=== PATIENT | male | born 1990 | race Caucasian/White ===

== ENCOUNTER → 2022-08-19 | Outpatient (CLI) | payer BC ==
--- NOTE | 2022-08-19 14:57 | US ---
EXAMINATION TYPE: US venous doppler duplex LE LT DATE OF EXAM: 08/19/2022 2:28 PM COMPARISON: NONE CLINICAL INDICATION: Male, 32 years old with history of I80.9; hx left ankle ligament surgery x 1 mon th ago. Calf and ankle discomfort x 1 week ago. No redness or swelling. SIDE PERFORMED: Left TECHNIQUE: The lower extremity deep venous system is examined utilizing real time linear array sonog lien with graded compression, doppler sonography and color-flow sonography. VESSELS IMAGED: Common Femoral Vein Deep Femoral Vein Greater Saphenous Vein * Femoral Vein Popliteal Vein Small Saphenous Vein * Proximal Calf Veins (* superficial vessels) Left Leg: POSITIVE for DVT in distal popliteal to calf veins, nonoccluding. IMPRESSION: There is evidence of DVT as noted above.
== END | disposition home or self-care (01) ==
LOC: RADUSWWP 13:52
PROVIDERS: ATTEND Podiatrist
DX: I82.431 Acute embolism and thrombosis of right popliteal vein (principal)

== ENCOUNTER 2022-10-02 14:22 | Observation (INO) | payer BC, OTHER ==
--- NOTE | 2022-10-02 16:37 | XR ---
EXAMINATION TYPE: XR chest 2V DATE OF EXAM: 10/02/2022 COMPARISON: None INDICATION: Chest pain history of blood clot removal from leg TECHNIQUE: Frontal and lateral views of the chest are obtained. FINDINGS: The heart size is normal. The pulmonary vasculature is normal. Mild platelike atelectasis is above the right diaphragm. There is elevation of the right diaphragm.. IMPRESSION: 1. Mild platelike atelectasis right lung base
[2022-10-02 16:52] LABS: ALT 75 U/L (4-49); African American GFR (CKD) >90 (>60 ml/min/1.73 sqM); Albumin 4.5 g/dL (3.5-5.0); Anion Gap 14 mmol/L; Blood Urea Nitrogen 15 mg/dL (9-20); Calcium 9.7 mg/dL (8.4-10.2); Carbon Dioxide 18 mmol/L (22-30); Chloride 108 mmol/L (98-107); Glucose 103 mg/dL (74-99); Non-African American GFR(CKD) >90 (>60 ml/min/1.73 sqM); Sodium 140 mmol/L (137-145); Total Protein 7.8 g/dL (6.3-8.2)
[2022-10-02 16:53] LABS: INR 1.5 (<1.2); Partial Thromboplastin Time 27.9 sec (22.0-30.0); Prothrombin Time 14.7 sec (9.0-12.0)
[2022-10-02 17:02] LABS: AST 51 U/L (17-59); Alkaline Phosphatase 86 U/L (38-126); Magnesium 2.1 mg/dL (1.6-2.3); Potassium 4.1 mmol/L (3.5-5.1)
--- NOTE | 2022-10-02 17:26 | ED ---
Chest Pain HPI - General Chief Complaint: Chest Pain Stated Complaint: chest pain Time Seen by Provider: 10/02/22 15:49 Source: patient Mode of arrival: ambulatory Limitations: no limitations - History of Present Illness Initial Comments: Oh is a 32-year-old male who presents to the emergency department today for evaluation of right-sided chest pain. Patient reports he woke up this morning has pain in the right side of his chest, pain is worse with deep breaths. Patient feels like he can't take a deep breath due to the pain. Patient does have a history of a provoked DVT in his left leg after ankle surgery. Patient was prescribed Eliquis but admits that he's been minimally compliant with it. Patient states that his medical insurance changed and he didn't follow-up with any providers for refill of his L Sneha due to having not met his new deductible. Patient states he takes his Eliquis occasionally when he remembers but typically only once every 3 or so days. He did take one today. Patient states when he told his girlfriend about the pain in his chest she was worried he could have a blood clot in his lungs encouraged him to come to the hospital. After further questioning patient does admit to being a daily drinker. Patient states that he has a few drinks after work most days and on weekends usually drinks throughout the day because he is either playing golf or spending time poolside. Patient states he only drinks beer and wine no the fan of liquor. - Related Data Home Medications Medication Instructions Recorded Confirmed Apixaban [Eliquis] 5 mg PO BID 10/02/22 10/02/22 Allergies Allergy/AdvReac Type Severity Reaction Status Date / Time No Known Allergies Allergy Verified 10/02/22 16:59 Review of Systems ROS Statement: Those systems with pertinent positive or pertinent negative responses have been documented in the HPI. ROS Other: All systems not noted in ROS Statement are negative. 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 There are no acute ST elevations or depressions there is no evidence of acute ischemia or infarction. Past Medical History Past Medical History: No Reported History History of Any Multi-Drug Resistant Organisms: None Reported Past Surgical History: Orthopedic Surgery Additional Past Surgical History / Comment(s): blood clot removeal from left leg after having left ankle surgery Past Psychological History: No Psychological Hx Reported Smoking Status: Vaper Past Alcohol Use History: Occasional Past Drug Use History: None Reported General Exam - General Exam Comments Initial Comments: Physical Exam GENERAL: Patient is well-developed and well-nourished. Patient is nontoxic and well- hydrated and is in no distress. HENT: Normocephalic, Atraumatic. EYES: PERRL, EOMI PULMONARY: Unlabored respirations. No audible rales rhonchi or wheezing was noted. CARDIOVASCULAR: Tachycardic, regular, no murmurs ABDOMEN: Soft and nontender with normal bowel sounds. SKIN: Skin is clear with no lesions or rashes and otherwise unremarkable. : Deferred NEUROLOGIC: Patient is alert and oriented x3. Moving all extremities spontaneously MUSCULOSKELETAL: Normal extremities with adequate strength and full range of motion. No lower extremity swelling or edema. No calf tenderness. PSYCHIATRIC: Normal psychiatric evaluation. Limitations: no limitations Course Vital Signs 10/02/22 14:25 Temperature 98.5 F Pulse Rate 126 H Respiratory 18 Rate Blood Pressure 132/92 O2 Sat by Pulse 95 Oximetry Chest Pain MDM - MDM Patient was seen and evaluated, history is obtained from the patient. Considering the history of previous DVT noncompliance with L Sneha there is concern for possible PE. Labs were obtained chest x-ray and computed tomography scan were obtained. No pulmonary embolism was identified. No source of his tachycardia or or injection shortness of breath or chest pain were identified. Patient did receive Ativan after having some anxiety laying down and CT scanner. He also received Toradol and reported significant improvement in the right- sided chest discomfort. However patient remained persistently significantly tachycardic. Upon reevaluation even while asleep patient's tachycardia remained at 108-110. Upon waking patient sat up and began speaking heart rate was again 137 244. Vision care was discussed with on-call business risk analyst Dr. Culp who recommends admission for cardiac monitoring and further workup. The patient was agreeable to this. Was pt. sent in by a medical professional or institution (, PA, GROMMET WORKER, urgent care, hospital, or custodial...) When possible be specific @ -No Did you speak to anyone other than the patient for history (EMS, parent, family, police, friend...)? What history was obtained from this source @ -No Did you review nursing and triage notes (agree or disagree)? Why? @ -I reviewed and agree with nursing and triage notes Were old charts reviewed (outside hosp., previous admission, EMS record, old EKG, old radiological studies, urgent care reports/EKG's, custodial records)? Report findings @ -No old charts were reviewed Differential Diagnosis (chest pain, altered mental status, abdominal pain women, abdominal pain men, vaginal bleeding, weakness, fever, dyspnea, syncope, headache, dizziness, GI bleed, back pain, seizure, CVA, palpatations, mental health, musculoskeletal)? @ -Differential Chest Pain: Stable Angina, Unstable Angina, STEMI, NSTEMI Aortic Dissection, Pneumothorax, Musculoskeletal, Esophageal Spasm GERD, Cholecystitis, Pancreatitis, Zoster, this is not meant to be an all-inclusive list. EKG interpreted by me (3pts min.). @ -As above X-rays interpreted by me (1pt min.). @ -No pneumothorax or focal consolidation identified CT interpreted by me (1pt min.). @ -No saddle pulmonary embolism identified U/S interpreted by me (1pt. min.). @ -None done What testing was considered but not performed or refused? (CT, X-rays, U/S, labs)? Why? @ -Echocardiogram, to be completed during admission What meds were considered but not given or refused? Why? @ -None Did you discuss the management of the patient with other professionals (professionals i.e. , PA, GROMMET WORKER, lab, RT, psych nurse, social research assistant, fence builder, teacher, enforcement safety officer, case manager specialist)? Give summary @ -Patient care discussed with business risk analyst Dr. Culp Was smoking cessation discussed for >3mins.? @ -Yes - patient currently vapes Was critical care preformed (if so, how long)? @ -No Were there social determinants of health that impacted care today? How? (Homelessness, low income, unemployed, alcoholism, drug addiction, transportation, low edu. Level, literacy, decrease access to med. care, custodial, rehab)? @ -Alcoholism Was there de-escalation of care discussed even if they declined (Discuss DNR or withdrawal of care, Hospice)? DNR status @ -No What co-morbidities impacted this encounter? (DM, HTN, Smoking, COPD, CAD, Cancer, CVA, ARF, Chemo, Hep., AIDS, mental health diagnosis, sleep apnea, morbid obesity)? @ -None Was patient admitted / discharged? Hospital course, mention meds given and rout e, prescriptions, significant lab abnormalities, going to OR and other pertinent info. @ -Placed in observation Undiagnosed new problem with uncertain prognosis? @ -No Drug Therapy requiring intensive monitoring for toxicity (Heparin, Nitro, Insulin, Cardizem)? @ -No Were any procedures done? @ -No Diagnosis/symptom? @ -Chest pain, tachycardia Acute, or Chronic, or Acute on Chronic? @ -Acute Uncomplicated (without systemic symptoms) or Complicated (systemic symptoms)? @ -Complicated Side effects of treatment? @ -No Exacerbation, Progression, or Severe Exacerbation? @ -No Poses a threat to life or bodily function? How? (Chest pain, [place], [place], pneumonia, PE, COPD, DKA, ARF, appy, cholecystitis, CVA, Diverticulitis, Homicidal, Suicidal, threat to staff... and all critical care pts) @ -Yes Disposition Clinical Impression: Pleuritic chest pain, Tachycardia Disposition: ADMITTED IP TO THIS HOSP Condition: Stable Instructions (If sedation given, give patient instructions): Pleurisy (DC) Is patient prescribed a controlled substance at d/c from ED?: No Referrals: None,Stated [Primary Care Provider] - 1-2 days
[2022-10-02 17:54] LABS: Basophils % (A) 0 %; Eosinophils # (A) 0.1 k/uL (0-0.7); Eosinophils % (A) 1 %; HCT 47.8 % (39.0-53.0); HGB 16.9 gm/dL (13.0-17.5); Lymphocytes % (A) 14 %; MCH 32.2 pg (25.0-35.0); MCHC 35.4 g/dL (31.0-37.0); MCV 91.1 fL (80.0-100.0); Mean Platelet Volume 8.3; Monocytes # (A) 0.3 k/uL (0-1.0); Monocytes % (A) 5 %; Neutrophils # (A) 5.5 k/uL (1.3-7.7); Neutrophils % (A) 78 %; Platelet Count 209 k/uL (150-450); RBC 5.25 m/uL (4.30-5.90); RDW 12.3 % (11.5-15.5)
[2022-10-02] MEDS ORDERED: LORazepam 2 MG/ML INJ IV STA (17:58)
--- NOTE | 2022-10-02 19:13 | CT ---
CT CHEST FOR PULMONARY EMBOLISM. EXAMINATION TYPE: CT chest angio for PE DATE OF EXAM: 10/02/2022 INDICATION: chest pain CT DLP: 539.9 mGycm, Automated exposure control for dose reduction was used. CONTRAST: Patient injected with 100 mL of Isovue 370. COMPARISON: None TECHNIQUE: CT of the chest is performed on a spiral scan at 2 mm thick sections. Study is performed with intravenous contrast timed for evaluation for pulmonary embolism. This will limit additional po rtions of the evaluation. 3-D MIP images reconstructed by the technologist are reviewed on the compu ter in the coronal and sagittal planes. FINDINGS: No persistent filling defects are evident to suggest an acute pulmonary embolism. No mediastinal or hilar adenopathy enlarged by CT criteria is evident. The ascending aorta diameter at the level of the main pulmonary artery is 3.2 cm. The main pulmonary artery diameter at the bifur cation is 2.5 cm. Lung windows are clear. Limited CT section through the upper abdomen. No is made of a splenule adjacent to the spleen. There is some moderate fatty infiltration of the liver. IMPRESSIONS: 1. No acute pulmonary embolism. 2. No acute pulmonary process. 3. Moderate fatty infiltration of the liver.
[2022-10-02] MEDS ORDERED: SODIUM CHLORIDE 0.9% 1,000 ML IV ONE (19:35)
[2022-10-02] MEDS ORDERED: KETOROLAC 15 MG/ML 1 ML VIAL IVP STA (19:35)
[2022-10-02] MEDS ORDERED: ASPIRIN 81 MG PO STA (22:04)
[2022-10-02] MEDS ORDERED: MELATONIN 3 MG TABLET PO PRN (22:41)
[2022-10-02] MEDS ORDERED: LORazepam 1 MG TAB PO PRN (22:41)
[2022-10-02] MEDS ORDERED: HEPARIN SODIUM 1,000 UN/ML (10ML VL) IV PRN (22:58)
[2022-10-02] MEDS ORDERED: HEPARIN SODIUM 1,000 UN/ML (10ML VL) IV ONE (22:58)
[2022-10-02] MEDS ORDERED: HEPARIN SOD,PORK IN 0.45% NACL 25,000 UNIT in 0.45% NACL 1 250ML.BAG IV SCH (23:00)
[2022-10-03 00:31] LABS: Basophils % (A) 0 %; Eosinophils # (A) 0.1 k/uL (0-0.7); Eosinophils % (A) 1 %; HCT 44.4 % (39.0-53.0); HGB 15.3 gm/dL (13.0-17.5); Lymphocytes # (A) 0.9 k/uL (1.0-4.8); Lymphocytes % (A) 16 %; MCHC 34.5 g/dL (31.0-37.0); MCV 92.8 fL (80.0-100.0); Mean Platelet Volume 8.4; Monocytes # (A) 0.3 k/uL (0-1.0); Monocytes % (A) 5 %; Neutrophils # (A) 4.6 k/uL (1.3-7.7); Neutrophils % (A) 76 %; Platelet Count 171 k/uL (150-450); RBC 4.78 m/uL (4.30-5.90); RDW 12.5 % (11.5-15.5)
[2022-10-03] MEDS ORDERED: ZOLPIDEM 5 MG TAB PO PRN (00:32)
[2022-10-03] MEDS ORDERED: ALPRAZolam 0.25 MG TAB PO PRN (00:32)
--- NOTE | 2022-10-03 00:43 | P.HPIM ---
History of Present Illness H&P Date: 10/02/22 Chief Complaint: chest pain 32 year old male with recent ankle injury , followed by acute left LE DVT on eliquis he is coming in today with right sided pleuritic chest pain of 1 day duration. he describes anxiety resulting in fast heart rate, and palpitations. he denies a ny drugs or excessive caffeine intake, but does admit to anxiety and increase stress due to work. denies any cardiac history , but since his surgery on his left ankle back in July of this year , he has been told that he has fast heart rate. 1 month later, persistent swelling of his left ankle , and was diagnosed with acute DVT and started on eliquis , he admits to not being compliant with his meds denies any URI symptoms , fever chills, dizziness, nausea or vom iting, denies any abd pain or bleeding , denies any hemoptysis denies drugs , tobacco smoking, admits to vaping, and regular 5 days a week of 4 beers daily Review of Systems Pertinent positives as noted in HPI. All other systems were reviewed and are negative Past Medical History Past Medical History: Deep Vein Thrombosis (DVT) History of Any Multi-Drug Resistant Organisms: None Reported Past Surgical History: Orthopedic Surgery Additional Past Surgical History / Comment(s): blood clot removeal from left leg after having left ankle surgery Past Psychological History: No Psychological Hx Reported Smoking Status: Vaper Past Alcohol Use History: Occasional Past Drug Use History: None Reported Medications and Allergies Home Medications Medication Instructions Recorded Confirmed Type Apixaban [Eliquis] 5 mg PO BID 10/02/22 10/02/22 History Allergies Allergy/AdvReac Type Severity Reaction Status Date / Time No Known Allergies Allergy Verified 10/02/22 16:59 Physical Exam Vitals: Vital Signs Temp Pulse Pulse Resp BP Pulse Ox 10/02/22 22:35 113 H 16 135/74 95 10/02/22 20:00 130 H 10/02/22 14:25 98.5 F 126 H 18 132/92 95 Intake and Output 10/02/22 10/02/22 10/02/22 06:59 14:59 22:59 Other: Weight 108.862 kg v Constitutional: No acute distress, conversant, pleasant Eyes: Anicteric sclerae, moist conjunctiva, Pupils equal round reactive to light ENMT: NC/AT Oropharynx clear, no erythema, or exudates Neck: Supple, no masses, or JVD No carotid bruits No thyromegaly Lungs: Clear to auscultation Clear to percussion Normal respiratory effort, no accessory muscle use Cardiovascular: Heart tachycardia No murmurs, gallops, or rubs No peripheral edema Abdominal: Soft Nontender, no guarding, rebound or rigidity Abdomen moving with respiration Normoactive bowel sounds No hepatomegaly, No splenomegaly No palpable mass No abdominal wall hernia noted Skin: Normal temperature, tone, texture, turgor No induration No subcutaneous nodules No rash, lesions No ulcers Extremities: No digital cyanosis No clubbing Pedal pulses intact and symmetrical Radial pulses intact and symmetrical No calf tenderness Psychiatric: Alert and oriented to person, place and time Appropriate affect fair judgement Neuro Muscles Strength 5/5 in all 4 extremities Sensation to light touch grossly present throughout Cranial nerves II-XII grossly intact Lymphatics: no palpable cervical or supraclavicular lymph nodes Results CBC & Chem 7: 10/02/22 23:52 10/02/22 16:11 Labs: Abnormal Lab Results - Last 24 Hours (Table) 10/02/22 10/02/22 Range/Units 16:11 16:11 PT 14.7 H (9.0-12.0) sec INR 1.5 H (<1.2) Chloride 108 H (98-107) mmol/L Carbon Dioxide 18 L (22-30) mmol/L Glucose 103 H (74-99) mg/dL ALT 75 H (4-49) U/L Assessment and Plan Assessment: 32 year old male with recent diagnosis of acute provoked DVT 1 month ago , not compliant with eliquis , coming in for tachyardia and right sided peluritic chest pain , I discussed the case with ED doc , and I accepted the admission for cardiac workup with anticipated length of stay < 2 midnights sinus tachycardia subacute DVTof left LE , provoked with recent surgery of the left ankle on jul 22 2022, non compliant with eliquis plan check echocardiogram check TSH , reflex to free t4 left lower extremity doppler , shows subacute DVT resume eliquis IVF hydration with normal saline asymptomatic PRN xanax ambien for insomnia 5mg cardiology consult patient wears smart watch, showing a HR in the range of 80-90. with spikes into the 110-130 electrolytes unremarkable K 4.1, Mg 2.1 trops negative , Pro BNP <20 CTA no acute PE d dimer negative daily ETOH monitor for alcohol withdrawal counseled to quit drinking thiamine daily po renal function , unremarkable BUN 15 , cr 0.89 full code DVT PPX on eliquis
[2022-10-03 00:45] LABS: Partial Thromboplastin Time 25.9 sec (22.0-30.0); Prothrombin Time 10.2 sec (9.0-12.0)
[2022-10-03] MEDS ORDERED: LORazepam 0.5 MG TAB PO PRN (00:45)
[2022-10-03] MEDS ORDERED: LORazepam 1 MG TAB PO PRN ×3 (00:45)
[2022-10-03] MEDS: APIXABAN 5 MG TAB PO SCH ×2 (01:11→08:53)
[2022-10-03 04:59] LABS: Basophils % (A) 0 %; Eosinophils % (A) 1 %; HCT 42.6 % (39.0-53.0); HGB 14.7 gm/dL (13.0-17.5); Lymphocytes # (A) 1.1 k/uL (1.0-4.8); Lymphocytes % (A) 24 %; MCH 31.8 pg (25.0-35.0); MCHC 34.4 g/dL (31.0-37.0); MCV 92.5 fL (80.0-100.0); Mean Platelet Volume 8.6; Monocytes # (A) 0.3 k/uL (0-1.0); Monocytes % (A) 6 %; Neutrophils # (A) 3.1 k/uL (1.3-7.7); Neutrophils % (A) 67 %; Platelet Count 164 k/uL (150-450); RBC 4.61 m/uL (4.30-5.90); RDW 12.4 % (11.5-15.5); WBC 4.6 k/uL (3.8-10.6)
[2022-10-03 07:21] VITALS: RESP 16
[2022-10-03 08:59] LABS: Chol/HDL Ratio 5.33 Ratio; LDL Cholesterol,Calculated 127.8 mg/dL (0.0-131.0); VLDL Calculation 18.38 mg/dL (5.00-40.00)
[2022-10-03] MEDS ORDERED: ASPIRIN 325 MG TAB PO SCH (09:00)
[2022-10-03] MEDS ORDERED: DOBUTamine DRIP for NUC MED 500 MG in DEXTROSE/WATER 1 250ML.BAG IV PRN (09:00)
--- NOTE | 2022-10-03 09:50 | P.CRDCN ---
History of Present Illness Consult date: 10/03/22 Requesting physician: Evelin Fine Reason for Consult (text): chest pain Chief complaint: chest pain History of present illness: This is a pleasant 32-year-old gentleman who does not follow regularly with the physician. He has a history of ankle surgery in July and subsequently developed a left leg DVT and was started on Eliquis. He admits to not taking this regularly. He has a history of vaping and admits to drinking 3-4 beers at least 5 days a week. He presented with complaints of chest discomfort. Yesterday he developed sharp right sided chest pain with pronation. CTA of the chest was negative for PE. Troponins have been negative 3. EKG shows short ND interval and delta waves suggestive of WPW. He admits to occasional palpitations typically with stress or activity. Denies any dizziness, lightheadedness, shortness of breath, edema or PND. This morning upon examination he is resting comfortably in bed. He denies further complaints of chest discomfort. Vital signs have been stable. He remains tachycardic. Past Medical History Past Medical History: Deep Vein Thrombosis (DVT) History of Any Multi-Drug Resistant Organisms: None Reported Past Surgical History: Orthopedic Surgery Additional Past Surgical History / Comment(s): blood clot removeal from left leg after having left ankle surgery Past Psychological History: No Psychological Hx Reported Smoking Status: Vaper Past Alcohol Use History: Occasional Past Drug Use History: None Reported Medications and Allergies Home Medications Medication Instructions Recorded Confirmed Type Apixaban [Eliquis] 5 mg PO BID 10/02/22 10/02/22 History Allergies Allergy/AdvReac Type Severity Reaction Status Date / Time No Known Allergies Allergy Verified 10/02/22 16:59 Physical Exam Vitals: Vital Signs Temp Pulse Pulse Resp BP BP Pulse Ox 10/03/22 08:35 95 10/03/22 07:00 98.4 F 108 H 16 101/69 95 10/03/22 01:45 99.0 F 125 H 17 133/82 95 10/03/22 00:00 112 H 16 129/97 98 10/02/22 22:35 113 H 16 135/74 95 10/02/22 20:00 130 H 10/02/22 14:25 98.5 F 126 H 18 132/92 95 Intake and Output 07/10/03/22 10/03/22 22:59 06:59 14:59 Other: # Voids 2 Weight 108.862 kg PHYSICAL EXAMINATION: This is a 32-year-old male in no apparent distress at the time of my examination. HEENT: Head is atraumatic, normocephalic. Pupils are equal, round. Sclerae anicteric. Conjunctivae are clear. Mucous membranes of the mouth are moist. Neck is supple. There is no elevated jugular venous pressure. No carotid bruit is heard. CHEST EXAMINATION: Clear to auscultation bilaterally. No wheezes rales or rhonchi. Respirations even and nonlabored. HEART EXAMINATION: Heart regular, positive S1 and S2. No S3. No S4. No clicks, rubs or murmurs. ABDOMEN: Soft, nontender. Bowel sounds are heard. No organomegaly noted. EXTREMITIES: 2+ peripheral pulses with no evidence of peripheral edema and no calf tenderness noted. NEUROLOGIC EXAMINATION: Patient is awake, alert and oriented x3. Results 10/03/22 04:30 10/02/22 16:11 Cardiac Enzymes 10/02/22 10/02/22 10/02/22 Range/Units 16:11 16:11 21:21 AST 51 (17-59) U/L Troponin I <0.012 <0.012 (0.000-0.034) ng/mL 10/02/22 Range/Units 23:52 AST (17-59) U/L Troponin I <0.012 (0.000-0.034) ng/mL Coagulation 10/02/22 10/02/22 10/03/22 Range/Units 16:11 23:52 04:30 PT 14.7 H 10.2 (9.0-12.0) sec APTT 27.9 25.9 27.2 (22.0-30.0) sec Lipids 10/03/22 Range/Units 04:30 Triglycerides 91.90 (0.00-149.00) mg/dL Cholesterol 180.00 (0.00-200.00) mg/dL HDL Cholesterol 33.80 L (40.00-60.00) mg/dL Cholesterol/HDL Ratio 5.33 Ratio CBC 10/02/22 10/02/22 10/03/22 Range/Units 17:33 23:52 04:30 WBC 7.0 6.0 4.6 (3.8-10.6) k/uL RBC 5.25 4.78 4.61 (4.30-5.90) m/uL Hgb 16.9 15.3 14.7 (13.0-17.5) gm/dL Hct 47.8 44.4 42.6 (39.0-53.0) % Plt Count 209 171 164 (150-450) k/uL Comprehensive Metabolic Panel 10/02/22 Range/Units 16:11 Sodium 140 (137-145) mmol/L Potassium 4.1 (3.5-5.1) mmol/L Chloride 108 H (98-107) mmol/L Carbon Dioxide 18 L (22-30) mmol/L BUN 15 (9-20) mg/dL Creatinine 0.89 (0.66-1.25) mg/dL Glucose 103 H (74-99) mg/dL Calcium 9.7 (8.4-10.2) mg/dL AST 51 (17-59) U/L ALT 75 H (4-49) U/L Alkaline Phosphatase 86 (38-126) U/L Total Protein 7.8 (6.3-8.2) g/dL Albumin 4.5 (3.5-5.0) g/dL Current Medications Generic Name Dose Route Start Last Admin Trade Name Freq PRN Reason Stop Dose Admin Alprazolam 0.25 mg 10/03/22 00:32 10/03/22 04:38 Alprazolam 0.25 Mg Tab PO 0.25 mg TID PRN Administration Anxiety Apixaban 5 mg 10/03/22 00:45 10/03/22 08:53 Apixaban 5 Mg Tab PO 5 mg BID JUN Administration Protocol Lorazepam 1 mg 10/02/22 22:41 10/03/22 01:11 Lorazepam 1 Mg Tab PO 1 mg ONCE PRN Administration Agitation or Acute Anxiety Lorazepam 0.5 mg 10/03/22 00:45 Lorazepam 0.5 Mg Tab PO Q4HR PRN Ciwa 4 To 5 Lorazepam 1 mg 10/03/22 00:45 Lorazepam 1 Mg Tab PO Q4HR PRN Ciwa 6 To 7 Lorazepam 2 mg 10/03/22 00:45 Lorazepam 1 Mg Tab PO Q2HR PRN Ciwa 10 or greater Lorazepam 2 mg 10/03/22 00:45 Lorazepam 1 Mg Tab PO Q3HR PRN Ciwa 8 To 9 Melatonin 6 mg 10/02/22 22:41 Melatonin 3 Mg Tablet PO HS PRN Insomnia Thiamine HCl 100 mg 10/04/22 09:00 Thiamine 100 Mg Tab PO DAILY JUN Zolpidem Tartrate 5 mg 10/03/22 00:32 Zolpidem 5 Mg Tab PO HS PRN Insomnia Intake and Output 10/02/22 10/03/22 10/03/22 22:59 06:59 14:59 Other: # Voids 2 Weight 108.862 kg 10/03/22 04:30 10/02/22 16:11 Assessment and Plan Assessment: #1 right sided chest discomfort, acute coronary event has been ruled out, troponins negative 3 #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 Discussed importance of compliance with an ticoagulation. Discussed importance of abstaining from alcohol especially while on anticoagulation. We will obtain a stress echocardiogram. Further recommendations depending on diagnostic findings. QUAL RESEARCH MANAGER note has been reviewed, I agree with a documented findings and plan of care. Patient was seen and examined.
--- NOTE | 2022-10-03 11:42 | CA ---
Transthoracic Echo Report Name: Frandy Wood Age: 32 Gender: M : 1990 Exam Date: 10/03/2022 07:59 Exam Location: [facility] Ht (in): 72 Wt (lb): 240 Ordering Physician: Petra Chandra DO Attending/Referring Phys: [id number], Prateek Press Tender [employer] Harika Orozco, [facility] Procedure CPT: Indications: tachycardia Cardiac Hx: Technical Quality: Good Contrast 1: Total Dose (mL): Contrast 2: Total Dose (mL): MEASUREMENTS (Male / Female) Normal Values 2D ECHO LV Diastolic Diameter PLAX 4.5 cm 4.2 - 5.9 / 3.9 - 5.3 cm LV Systolic Diameter PLAX 2.8 cm IVS Diastolic Thickness 1.1 cm 0.6 - 1.0 / 0.6 - 0.9 cm LVPW Diastolic Thickness 1.0 cm 0.6 - 1.0 / 0.6 - 0.9 cm LV Relative Wall Thickness 0.5 RV Internal Dim ED PLAX 2.8 cm LA Systolic Diameter LX 3.9 cm 3.0 - 4.0 / 2.7 - 3.8 cm LA Volume 36.6 cm??? 18 - 58 / 22 - 52 cm??? M-MODE Aortic Root Diameter MM 3.6 cm MV E Point Septal Separation 0.6 cm AV Cusp Separation MM 2.4 cm DOPPLER AV Peak Velocity 111.1 cm/s AV Peak Gradient 4.9 mmHg MV Area PHT 4.2 cm??? Mitral E Point Velocity 80.3 cm/s Mitral A Point Velocity 69.6 cm/s Mitral E to A Ratio 1.2 MV Deceleration Time 179.1 ms MV E' Velocity 7.4 cm/s Mitral E to MV E' Ratio 10.8 FINDINGS Left Ventricle Left ventricular ejection fraction is estimated at 55-60 %. Left ventricular cavity size normal. Left ventricular wall thickness normal. Normal left ventricular wall motion. Right Ventricle Normal right ventricular size and function. Unable to estimate the right ventricular systolic pressure. Right Atrium Normal right atrial size. Left Atrium Normal left atrial size. Mitral Valve Structurally normal mitral valve. No mitral stenosis, regurgitation or prolapse. Aortic Valve Trileaflet aortic valve. No aortic valve stenosis or regurgitation. Tricuspid Valve Structurally normal tricuspid valve. No tricuspid stenosis, regurgitation or prolapse. Pulmonic Valve Structurally normal pulmonic valve. No pulmonic regurgitation. Pericardium Normal pericardium. No pericardial effusion. Aorta Normal size aortic root and proximal ascending aorta. CONCLUSIONS 1. Normal left ventricular size and systolic function 2. No significant valvular abnormalities Previewed by: Dr. Ria Lucio MD (Electronically Signed) Final Date: 03 October 2022 11:41
[2022-10-03] MEDS ORDERED: ACETAMINOPHEN TAB 325 MG TAB PO PRN (12:34)
--- NOTE | 2022-10-03 13:19 | CA ---
Stress Echo Report Frandy Wood Age: 32 Gender: M : 1990 Exam Date: 10/03/2022 12:00 Exam Location: [facility] Ht (in): 72 Wt (lb): 240 Ordering Physician: Marva Jiménez Referring Physician: [id number] Burgos Recorder Of Deeds: Yee Valdez RDCS Technologist Procedure CPT: Indication: Chest Pain ICD-9 Codes: Rhythm: Patient History: Atypical angina, Dyspnea/SOB, Smoker Cardiac Medications: Medications in past 24 hours: Contrast: Lumason Stress Results Protocol: Nacho Total dose(mL): 5 Exercise Duration (min:sec): 09:[address] Depression (mm): 0 Angina Score: 0 Blas Score: 9 METS: 10.5 Resting HR: 107 Resting BP: 131 / 90 Peak HR: 178 Peak BP: 174 / 91 Max Predicted HR: 190 94 % Max Predicted HR Target HR: 162 Double Product: 58993 Stress Summary: The patient's target heart rate was achieved BP Response: Normal Reason for Termination: MAX EXERTION/TARGET HR Cardiac Symptoms: FATIGUE ECG Analysis Resting ECG: Normal sinus rhythm, Resting ST/T wave changes Stress ECG: No abnormal ST/T wave changes with exercise Arrhythmia: None Echo Analysis Resting Echo: Normal resting echocardiogram. Peak Echo Analysis: Normal wall motion and thickening with normal augmentation MEASUREMENTS (Male/Female) Normal Values CONCLUSIONS Patient falls into low-risk group (DTS >= +5). This associates the patient with an annual CV mortality <= 0.5%. 1. Good exercise tolerance with nondiagnostic electrocardiographic response to exercise secondary to baseline EKG abnormality 2. Normal stress echocardiogram with no evidence of stress induced ischemia. Dr. Ria Lucio MD (Electronically Signed) Final Date: 03 October 2022 13:18
[2022-10-03 14:26] VITALS: BP 130/88; PULSE 120; TEMP 99
--- NOTE | 2022-10-03 16:22 | P.DS ---
Providers Date of admission: 10/02/22 22:04 Expected date of discharge: 10/03/22 Attending physician: Evelin Fine MD Consults: 10/02/22 22:04 Consult Physician Urgent Consulting Provider: Trung Culp Consult Reason/Comments: tachycardia Do you want consulting provider notified?: Already Contacted Primary care physician: Stated None Hospital Course: Discharge Diagnosis: Chest pain, acute coronary event ruled out. Chest pain due to pleurisy secondary to Vaping associated lung injury. Recommend cessation of use. Sinus tachycardia. Recommend cessation of alcohol use. History of recently diagnosed DVT, recommend continuation of anticoagulation with Eliquis and reinforced importance of taking medications as prescribed. Atelectasis right lung base, likely secondary to vaping. Recommend cessation of use. At risk alcohol use/abuse with reports of daily EtOH use, recommend cessation of use. Elevated liver enzyme, likely secondary to daily alcohol use/abuse. Hospital Course: Patient is a 32-year-old male with a past medical history of recently diagnosed DVT status post orthopedic procedure currently on anticoagulation with Eliquis and admits to medication noncompliance, daily alcohol use, and daily nicotine use via Vaping. He presented to the emergency department on 10/02/22 with chief complaint of chest pain. He underwent full evaluation in the emergency department. Labs completed and reviewed. CBC unremarkable with WBC count of 7.0, hemoglobin 16.9, and platelet count of 209. Coagulation profile revealing elevated PT of 14.7 and elevated INR of 1.5. D-dimer is negative at less than 0.17. BMP unremarkable with the exception of slightly elevated ALT of 75. Troponin negative at less than 0.012. ProBNP less than 20. EKG completed showing sinus tachycardia at 102 bpm with T-wave inversion in inferior and septal leads 2, 3, aVF, V1, and V2 upon personal review and interpretation. Chest x-ray completed negative for acute cardiopulmonary process reporting platelike atelectasis right lung base. CTA chest negative for acute cardiopulmonary process ruling out pulmonary emboli and revealing moderate fatty infiltration of the liver. Patient admitted under our services with consultation to cardiology. Troponins trended all negative at less than 0.0123 draws. Lipid profile unremarkable with the exception of low HDL of 33.8. TSH normal findings at 3.580. Patient was evaluated by cardiology recommending 2-D echo and stress echo. Echocardiogram completed revealing an EF of 55-60% with no significant valvular or structural abnormalities reported. Stress echo completed and upon review of report stating good exercise tolerance with nondiagnostic electrocardiographic response to exercise, normal stress echocardiogram with no evidence of stress-induced ischemia. Patient cleared from cardiac standpoint. Medically, patient stable at this time. Patient strongly encouraged to avoid Vaping and alcohol use. Medically, patient stable for discharge and follow up outpatient with PCP and oil and gas principal. Physical exam: Patient seen and examined at bedside. Patient report chest pain has completely resided and currently denies having any complaints or needs. Patient states he is very eager to go home. Patient was educated on the importance of medication compliance. Vital signs reviewed and stable. General: Nontoxic, no distress and appears stated age. Derm: Skin warm and dry, normal coloration for ethnicity. Head: Atraumatic, normocephalic and symmetric. Eyes: EOMs intact, no lid lag, and anicteric sclera Mouth: no lip lesions, mucus membranes moist Cardiovascular: Tachycardic rate with regular rhythm with normal S1S2, no murmur, positive posterior tibial pulses bilaterally, and cap refill < 2 seconds. Lungs: Respirations even, regular, and unlabored on room air. Lungs CTA bi laterally, no rhonchi, no rales, no wheezing, and no accessory muscle usage. Abdominal: soft, nontender to palpation, no guarding, no appreciable organomegaly. Ext: ROM intact. No gross muscle atrophy, no edema, no contractures. Neuro: Speech clear, face symmetrical and CN II-XII grossly intact with no noted focal neuro deficits. Psych: Alert and oriented to person, place, time, and situation. Appropriate and pleasant affect. A total of 35 minutes of time were spent preparing this complex discharge summary. Pt was discharged on 10/03/22 at 3:56 PM. Patient was seen independently by Nurse Practitioner. This document was prepared using [employer] dictation software. Please allow for errors in local government legislator while rare they do occur. I reviewed the documentation as provided by the NORBERT above, who is the original author of this note. I agree with the documented assessment and plan, with the following changes: none Patient Condition at Discharge: Stable Plan - Discharge Summary New Discharge Prescriptions: Continue Apixaban [Eliquis] 5 mg PO BID Discharge Medication List Apixaban [Eliquis] 5 mg PO BID 10/02/22 [History] Follow up Appointment(s)/Referral(s): Ria Lucio MD [STAFF PHYSICIAN] - 1 Week (please call for an appointment tomorrow thank you ) Fahad Benoit MD [STAFF PHYSICIAN] - 3 Days (please call for an appointment tomorrow thank you !!) Patient Instructions/Handouts: Chest Pain (GEN), Pleurisy (DC), At-Risk Alcohol Use (DC), Stress Echocardiogram (DC), EVALI (E-cigarette or Vaping-Associated Lung Injury) (DC) Activity/Diet/Wound Care/Special Instructions: Activity: As tolerated. Diet: Regular diet Special Instructions: It is very important to be compliant with medications especially an anticoagulant such as your Eliquis. Please Take all of your medications as directed and remember to keep all of your doctor's appointments and follow-up as needed. Highly recommend cessation of Vaping to prevent further episodes of the pain associated lung injury resulting in pleurisy. Highly recommend cessation of alcohol use, your liver enzymes slightly elevated and CT showing an enlarged liver. Continued daily drinking can lead to detrimental health complications such as alcoholic cirrhosis. Thank you for allowing us to participate in your care, it was truly a pleasure having you for our patient!!! Discharge Disposition: HOME SELF-CARE
[2022-10-04] MEDS ORDERED: THIAMINE 100 MG TAB PO SCH (09:00)
== END 2022-10-03 17:23 | disposition home or self-care (01) ==
LOC: EC 14:22 → 6NMEDSUR 22:04
PROVIDERS: ADMIT Internal Medicine; ATTEND Internal Medicine
DX: U07.0 Vaping-related disorder (principal); J68.9 Unspecified respiratory condition due to chemicals, gases, fumes and vapors; R09.1 Pleurisy; R00.0 Tachycardia, unspecified; J98.11 Atelectasis; K76.0 Fatty (change of) liver, not elsewhere classified; G47.00 Insomnia, unspecified; F10.10 Alcohol abuse, uncomplicated; F17.290 Nicotine dependence, other tobacco product, uncomplicated; F41.9 Anxiety disorder, unspecified; Z79.01 Long term (current) use of anticoagulants; Z86.718 Personal history of other venous thrombosis and embolism; Z98.890 Other specified postprocedural states; Z91.199 Patient's noncompliance with other medical treatment and regimen due to unspecified reason; Z71.41 Alcohol abuse counseling and surveillance of alcoholic; Z71.6 Tobacco abuse counseling
CPT/HCPCS: 96374; 96375; 99285; 36415; 94760; 93005; 93306; 93351; 85379; 83880; 80061; 80053; 84443; 83735; 84484; 85025 ×2; 85610; 85730 ×2; 71046; 71275; G0378 ×2; J2060; J1885; Q9950; Q9967